=== PATIENT | female | born 1995 | race American Indian/Alaskan Native ===

== ENCOUNTER 2021-11-04 09:32 | Emergency (ER) | payer SELFPAY ==
[2021-11-04 10:02] VITALS: BP 104/65
[2021-11-04] MEDS ORDERED: IBUPROFEN 600 MG TAB PO ONE (10:46)
[2021-11-04] MEDS ORDERED: ACETAMINOPHEN 325 MG TAB PO ONE (10:46)
--- NOTE | 2021-11-04 10:47 | Emergency Department Report ---
ED Lower Extremity HPI - General Chief Complaint: Extremity Injury, Lower Stated Complaint: RT ANKLE INJURY Time Seen by Provider: 11/04/21 10:23 Source: patient Mode of arrival: Ambulatory Limitations: No Limitations - History of Present Illness Initial Comments: 25-year-old female presents to the ER today with complaints of right ankle and foot pain and injury. Patient states that she was playing basketball at her aunts house about 3 days ago when someone excellently stepped on her ankle and foot. She states that she has not noticed any bruising or swelling but she does note that she has had increased pain with movement of the ankle and the foot. She reports that she did fracture her ankle in 2018 and had to wear a cast for about 6 weeks. This was back when she was in [place]. She did take medication for pain yesterday but none today. She reports no additional symptoms at this time. Complaint: ankle injury, foot injury -: days(s) (3) - Related Data Previous Rx's Medication Instructions Recorded Last Taken Type Ibuprofen [Motrin] 600 mg PO Q8H PRN #30 tablet 11/04/21 Unknown Rx Allergies Allergy/AdvReac Type Severity Reaction Status Date / Time No Known Allergies Allergy Verified 11/04/21 09:58 ED Review of Systems ROS: Stated complaint: RT ANKLE INJURY Other details as noted in HPI Comment: All other systems reviewed and negative Constitutional: denies: chills, fever, malaise, weakness Eyes: denies: eye pain, eye discharge, vision change ENT: denies: ear pain, throat pain, dental pain, hearing loss, epistaxis, congestion Respiratory: denies: cough, shortness of breath, SOB with exertion, SOB at rest, wheezing Cardiovascular: denies: chest pain, palpitations, dyspnea on exertion, edema, syncope, paroxysmal nocturnal dyspnea Gastrointestinal: denies: abdominal pain, nausea, diarrhea, constipation, hematemesis, melena, hematochezia Genitourinary: denies: urgency, dysuria, frequency, hematuria, discharge, abnormal menses, dyspareunia Musculoskeletal: arthralgia. denies: back pain, joint swelling, myalgia Skin: denies: rash, lesions, change in color, change in hair/nails, pruritus Neurological: denies: headache, weakness, numbness, paresthesias, confusion, abnormal gait, vertigo Psychiatric: denies: anxiety, depression, auditory hallucinations, visual hallucinations, homicidal thoughts, suicidal thoughts Hematological/Lymphatic: denies: easy bleeding, easy bruising, swollen glands ED Past Medical Hx - Medications Home Medications: Home Medications Medication Instructions Recorded Confirmed Last Taken Type Ibuprofen [Motrin] 600 mg PO Q8H PRN #30 tablet 11/04/21 Unknown Rx ED Physical Exam - General Limitations: No Limitations General appearance: alert, in no apparent distress - Head Head exam: Present: atraumatic, normocephalic, normal inspection - Neck Neck exam: Present: normal inspection, full ROM. Absent: meningismus - Respiratory Respiratory exam: Present: normal lung sounds bilaterally. Absent: respiratory distress, wheezes, rales, rhonchi - Cardiovascular Cardiovascular Exam: Present: regular rate, normal rhythm - Expanded Lower Extremity Exam Right Lower Leg exam: Present: normal inspection, tenderness (lateral right ankle and dorsal lateral right foot ). Absent: full ROM (ROM of right foot and ankle reduced due to pain), swelling, abrasion, laceration, ecchymosis, deformity, crepidus, dislocation, erythema, palpable cord, Valerie's sign Ankle exam: Present: tenderness. Absent: full ROM, swelling, abrasion, laceration, ecchymosis, deformity, crepidus, dislocation, erythema Foot/Toe exam: Present: tenderness, tenderness at base of 5th metatarsal. Absent: full ROM, swelling, abrasion, laceration, ecchymosis, deformity, dislocation, erythema, amputation, puncture wound, foreign body, calcaneal tenderness, nail avulsion Neuro vascular tendon exam: Present: no vascular compromise. Absent: pulse deficit, abnormal cap refill, motor deficit, sensory deficit, tendon deficit Gait: Positive: observed and limited by pain - Neurological Exam Neurological exam: Present: alert, oriented X3, CN II-XII intact, abnormal gait (limping ) - Psychiatric Psychiatric exam: Present: normal affect, normal mood - Skin Skin exam: Present: intact ED Course Vital Signs 11/04/21 09:58 Temperature 98.6 F Pulse Rate 79 Respiratory 16 Rate Blood Pressure 104/65 O2 Sat by Pulse 100 Oximetry ED Lower Extremity MDM - Radiology Data Radiology results: report reviewed Patient: NANDO BEAL MR#: [id number] 44 : 1995 Acct:[id number] Age/Sex: 25 / F ADM Date: 11/04/21 Loc: ED Attending Dr: Ordering Physician: SEMAJ HUNT Date of Service: 11/04/21 Procedure(s): XR ankle 3+V RT Accession Number(s): [id number] cc: SEMAJ HUNT Fluoro Time In Minutes: Right ankle-3 views INDICATION: ankle injury pain. COMPARISON: None available. IMPRESSION: No acute osseous abnormality. Normal alignment. No significant DJD. Soft tissues are unremarkable. Signer Name: Tian Arriaga MD Signed: 11/04/2021 11:30 AM Workstation Name: [id number] Transcribed By: JW Dictated By: Tian Arriaga MD Electronically Authenticated By: Tian Arriaga MD Signed Date/Time: 11/04/211129 DD/ 29 TD/TT: Patient: NANDO BEAL MR#: [id number] 44 : 1995 Acct:[id number] Age/Sex: 25 / F ADM Date: 11/04/21 Loc: ED Attending Dr: Ordering Physician: SEMAJ HUNT Date of Service: 11/04/21 Procedure(s): XR foot 3+V RT Accession Number(s): [id number] cc: SEMAJ HUNT Fluoro Time In Minutes: Right foot 3 views INDICATION: Injury FINDINGS: MTP joints and IP joints appear normal. Midfoot alignment appears normal. No acute findings. Signer Name: Pancho Langston MD Signed: 11/04/2021 11:29 AM Workstation Name: [id number] Transcribed By: CW Dictated By: KIANA LANGSTON MD Electronically Authenticated By: KIANA LANGSTON MD Signed Date/Time: 11/04/211128 DD/ 28 TD/TT: Critical care attestation.: If time is entered above; I have spent that time in minutes in the direct care of this critically ill patient, excluding procedure time. ED Disposition Clinical Impression: Ankle sprain, Foot sprain Disposition: HOME / SELF CARE / HOMELESS Is pt being admited?: No Does the pt Need Aspirin: No Condition: Stable Instructions: How to Use a Stirrup Ankle Brace, [id number], Ankle Sprain, Foot Sprain, How to Use Cold Therapy Additional Instructions: I recommend rest, elevating and applying ice to the ankle and foot for the next 2 to 3 days. Take the ibuprofen as prescribed to help with any pain. Use your crutches to help ambulate. Follow-up with dentofacial orthopedics dentist listed on discharge instructions in 2 weeks if your symptoms persist. Return to the ER if symptoms worsens in any way. Prescriptions: Ibuprofen [Motrin] 600 mg PO Q8H PRN #30 tablet PRN Reason: Pain Referrals: JAVIER FERNANDO MD [Staff Physician] - 3-5 Days Forms: Work/School Release Form(ED) Time of Disposition: 11:41
--- NOTE | 2021-11-04 11:33 | XRay Report ---
Right foot 3 views INDICATION: Injury FINDINGS: MTP joints and IP joints appear normal. Midfoot alignment appears normal. No acute findings . Signer Name: Pancho Langston MD Signed: 11/04/2021 11:29 AM Workstation Name: [id number]
--- NOTE | 2021-11-04 11:34 | XRay Report ---
Right ankle-3 views INDICATION: ankle injury pain. COMPARISON: None available. IMPRESSION: No acute osseous abnormality. Normal alignment. No significant DJD. Soft tissues are u nremarkable. Signer Name: Tian Arriaga MD Signed: 11/04/2021 11:30 AM Workstation Name: [id number]
== END 2021-11-04 19:00 | disposition home or self-care (01) ==
LOC: ED 09:32
DX: S93.401A Sprain of unspecified ligament of right ankle, initial encounter (principal); S93.601A Unspecified sprain of right foot, initial encounter; X58.XXXA Exposure to other specified factors, initial encounter; Y93.89 Activity, other specified; Y92.89 Other specified places as the place of occurrence of the external cause; Y99.8 Other external cause status
CPT/HCPCS: 99283